=== PATIENT | female | born 1955 ===

== ENCOUNTER 2025-04-07 07:51 | Day surgery (SDC) | payer MEDICARE, BC ==
[~2025-04-07] VITALS: Ht 170.2 cm; Wt 60.8 kg
[2025-04-07] MEDS ORDERED: LEVSOD75 (08:35)
[2025-04-07] MEDS ORDERED: ePHEDrine Sulfate 50 MG/ML 1ML Injection ONE (10:39)
== END 2025-04-07 11:05 | disposition home or self-care (01) ==
LOC: ORSCSDS 07:51
PROVIDERS: Internal Medicine Gastroenterology
PROC: 0DBK8ZX Excision of Ascending Colon, Via Natural or Artificial Opening Endoscopic, Diagnostic (ICD-10-PCS; principal; 2025-04-07 09:30)
DX: Z12.11 Encounter for screening for malignant neoplasm of colon (principal); D12.2 Benign neoplasm of ascending colon; K57.30 Diverticulosis of large intestine without perforation or abscess without bleeding; K64.4 Residual hemorrhoidal skin tags; Z86.0101 Personal history of adenomatous and serrated colon polyps; Z83.719 Family history of colon polyps, unspecified; Z85.850 Personal history of malignant neoplasm of thyroid; Z79.899 Other long term (current) drug therapy
CPT/HCPCS: 88305; J2704; J7120